=== PATIENT | male | born 1945 | race Caucasian/White ===

== ENCOUNTER 2020-09-26 02:12 | Emergency (ER) | payer MEDICARE, SELFPAY ==
--- NOTE | ~2020-09-26 | XR_ITS ---
XR chest 1V portable 09/26/2020 02:41 Indication: Shortness of breath Procedure: AP portable chest Comparison: No prior studies for comparison. Findings: Heart size normal. No focal infiltrates of the right midlung zone. No pleural effusion, endy ma or pneumothorax. Impression: 1: Focal infiltrates right midlung zone, atelectasis versus developing pneumonia. Reviewed, dictated and finalized at location A. STANT B[employer]ALL [employer]ACH Impression: 1: Focal infiltrates right midlung zone, atelectasis versus developing pneumoni a.
[2020-09-26 02:13] VITALS: BP 130/95; PULSE 170; RESP 22; TEMP 36.5; O2SAT 97
--- NOTE | 2020-09-26 02:19 | ED.CHESTPAIN ---
HPI - Chest Pain General Chief Complaint: Chest Pain Stated Complaint: racing heart Time Seen by Provider: 09/26/20 02:18 History of Present Illness HPI narrative: Awoken from sleep this morning by chest pain and rapid heart rate. The pain is severe pressure. Associated with nausea and mild dyspnea. He took 3 nitroglycerin tablets. Noted to have heart rate as high as 190, thought to be SVT. Initially hypotensive. Given 300 ml NS with return to normal. He reports feeling unwell the past 2 nights. Related Data Allergies Allergy/AdvReac Type Severity Reaction Status Date / Time No Known Allergies Allergy Unverified 04/24/15 13:45 Review of Systems Review of Systems: All systems reviewed & are unremarkable except as noted in HPI and below Constitutional: Constitutional: Reports chills and Denies fever(s) Cardiovascular: Cardiovascular: Reports chest pain and Reports rapid heart rate Respiratory: Respiratory: Reports dyspnea Gastrointestinal: Gastrointestinal: Reports nausea Musculoskeletal: Musculoskeletal: Denies back pain Neurologic: Denies numbness and Denies weakness [facility] Past Medical History Medical History (Updated 09/26/20 @ 03:28 by Faustino Leal MD) CAD (coronary artery disease) Social History Social History (Updated 09/26/20 @ 02:30 by Faustino Leal MD) Smoking status: Never smoker Exam Const: General: alert Nutritional Appearance: well nourished Orientation/consciousness: patient oriented x3 Other: Mild distress HENMT: Head: normal to inspection Neck: Neck: normal visual inspection Resp: Effort & Inspection: normal respiratory effort Auscultation: clear to auscultation bilaterally Cardio: Rate: tachycardic Rhythm: regular rhythm GI: GI Palp: Yes Soft to palpation and No Tenderness to palpation present (GI) Skin: General skin exam: pallor Neuro: General: patient oriented x3, moves all extremities, no focal motor deficits and CN's II-XI intact bilaterally Speech: normal speech Extrem: General: no edema Course Course Emergency Course: Case discussed with the sales contractor on-call for Dr. Forrest. He agrees that since the patient is chest pain free after cardioversion he would not benefit from admission or repeat troponin at this time. He will make a note on the chart so that they will set up EP studies and an event monitor for the patient. Vital Signs Vital signs: Vital Signs Temperature 36.5 C 09/26/20 02:13 Pulse Rate 170 H 09/26/20 02:13 Respiratory Rate 22 H 09/26/20 02:13 Blood Pressure 130/95 H 09/26/20 02:13 Pulse Oximetry 97 09/26/20 02:13 Temperature 36.5 C 09/26/20 02:13 Pulse Rate 91 09/26/20 02:57 Respiratory Rate 20 09/26/20 02:57 Blood Pressure 117/98 H 09/26/20 02:57 Pulse Oximetry 100 09/26/20 02:57 Procedures Other Procedure Procedure 1: Other Procedure: Chemical cardioversion performed. 6 mg adenosine was pushed rapidly with the patient on continuous EKG. He was successfully converted to sinus. MDM - Chest Pain MDM Narrative Medical decision making narrative: Pain free after cardioversion. Noischemic chasnges on EKG. Troponin negative. His cardologist will setup appropriate follow-up . Differential Diagnosis Differential diagnosis: Likely other (ACS, NSTEMI, SVT) Medical Records Data Attestation: I reviewed the patient's medical records. Lab Data Attestation: I reviewed the patient's lab results. Result diagrams: 09/26/20 02:35 09/26/20 02:35 Labs: Lab Results 09/26/20 09/26/20 09/26/20 Range/Units 02:35 02:35 02:35 WBC 9.7 (4.5-10.0) K/mm3 RBC 4.70 (4.6-6.20) M/mm3 Hgb 13.5 L (14.0-18.0) g/dL Hct 41.4 L (42.0-52.0) % MCV 88.1 (80-100) fl MCH 28.7 (26-34) pg MCHC 32.6 (32-36) g/dl RDW 13.6 (11.5-14.5) % Plt Count 267 (150-375) k/mm3 MPV 9.6 (7.4-10.4) fl Immature Gran % (Auto) 0.4 (0-0.5) % Neut %
[2020-09-26 02:24] VITALS: BP 145/109; PULSE 104; RESP 18; O2SAT 100
[2020-09-26] MEDS: ADENOSINE IV SOLN 6 MG/2 ML VIAL IV PUSH (02:24)
[2020-09-26 02:41] LABS: Basophils Absolute Auto 0.1 K/mm3 (0.0-0.1); Basophils Percent Auto 0.6 % (0.2-1.2); Eosinophils Absolute Auto 0.1 K/mm3 (0-0.3); Hematocrit 41.4 % (42.0-52.0); Hemoglobin 13.5 g/dL (14.0-18.0); Immature Granulocyte Absolute 0.04 K/mm3 (0.00-0.031); Immature Granulocyte Percent A 0.4 % (0-0.5); Lymphocytes Absolute Auto 2.91 K/mm3 (0.9-3.2); Lymphocytes Percent Auto 29.9 % (18.3-44.2); Mean Corpuscular HGB Conc 32.6 g/dl (32-36); Mean Corpuscular Hemoglobin 28.7 pg (26-34); Mean Corpuscular Volume 88.1 fl (80-100); Mean Platelet Volume 9.6 fl (7.4-10.4); Monocytes Absolute Auto 0.8 K/mm3 (0.1-0.6); Monocytes Percent Auto 8.2 % (2.6-8.5); Neutrophils Absolute Auto 5.8 K/mm3 (1.3-6.7); Neutrophils Percent Auto 59.9 % (45.5-73.1); Platelet Count Result 267 k/mm3 (150-375); Red Cell Distribution Width 13.6 % (11.5-14.5); White Blood Count 9.7 K/mm3 (4.5-10.0)
[2020-09-26] MEDS: METOPROLOL TARTRATE INJ 5 MG/5 ML VIAL IV PUSH (02:42)
[2020-09-26 02:53] LABS: Anion Gap 17 mmol/L (8-16); Blood Urea Nitrogen 16 mg/dL (9-20); Carbon Dioxide 22 mmol/L (22-30); Chloride 104 mmol/L (98-107); Estimated CRCL calculation 38 ml/min; Estimated Glomerular Filt Rate 50; Glucose 170 mg/dL (75-110); INR 1.1; Potassium 3.9 mmol/L (3.4-5.0); Prothrombin Time 14.3 Seconds (11.1-14.7); Sodium 143 mmol/L (137-145)
[2020-09-26 02:57] VITALS: BP 117/98; PULSE 91; RESP 20; O2SAT 100
[2020-09-26 03:05] LABS: Troponin I 0.014 ng/mL (0.000-0.034)
[2020-09-26 03:57] VITALS: BP 129/82; PULSE 95; RESP 18; O2SAT 99
== END 2020-09-26 04:03 | disposition home or self-care (01) ==
PROVIDERS: Emergency Provider Emergency Medicine; PCP Internal Medicine
DX: I47.1 Supraventricular tachycardia (principal); I25.10 Atherosclerotic heart disease of native coronary artery without angina pectoris; R91.8 Other nonspecific abnormal finding of lung field
CPT/HCPCS: 36415; 71045; 80048; 84484; 85025; 85610; 85730; 96374; 96375; 99284; J0153

== ENCOUNTER 2021-03-28 02:19 | Emergency (ER) | payer MEDICARE, SELFPAY ==
[2021-03-28 02:25] VITALS: BP 147/97; PULSE 65; RESP 16; TEMP 36.6; O2SAT 99
[2021-03-28 02:29] VITALS: BP 147/97; PULSE 65; RESP 20; TEMP 36.6; O2SAT 99
--- NOTE | 2021-03-28 02:40 | ED.SKABFB ---
HPI - Skin/Abscess/Foreign Bdy General Chief complaint: Skin/Abscess/Foreign Body Stated complaint: bitten by insect Time Seen by Provider: 03/28/21 02:28 Source: patient Mode of arrival: ambulatory Limitations: no limitations History of Present Illness HPI narrative: Patient is a 75-year-old male complaining of an itchy rash on his right upper extremity where he was bitten by an insect 2 days ago. Patient states that the itchiness woke him up this morning and that is why he came in. Patient also noticed increased redness in the area. Patient states that he called his doctor yesterday and was prescribed an oral antibiotic. Patient denies any facial, lip, tongue, throat or any other extremity swelling. Patient denies any shortness of breath. Patient denies any fever or chills. Related Data Allergies Allergy/AdvReac Type Severity Reaction Status Date / Time No Known Allergies Allergy Verified 03/28/21 02:20 Review of Systems Review of Systems: All systems reviewed & are unremarkable except as noted in HPI and below PMFSH Past Medical History Medical History CAD (coronary artery disease) Social History Social History Smoking status: Never smoker Comments Past medical history: Hypertension coronary disease Social history: Non-smoker no EtOH or drug use Family history: Noncontributory Exam Const: General: no acute distress and alert Orientation/consciousness: patient oriented x3 HENMT: Head: normal to inspection Other: Negative for any tongue, lip, throat swelling. Negative for any neck swelling. Eyes: Pupils: Equal, round and reactive pupils present Neck: Neck: normal visual inspection Skin: Other: Mild erythema, mild swelling right arm measuring approximately 1 x 2 cm, negative for streaking, neurovascular is intact Course Vital Signs Vital signs: Vital Signs Temperature 36.6 C 03/28/21 02:25 Pulse Rate 65 03/28/21 02:25 Respiratory Rate 16 03/28/21 02:25 Blood Pressure 147/97 H 03/28/21 02:25 Pulse Oximetry 99 03/28/21 02:25 Temperature 36.6 C 03/28/21 02:29 Pulse Rate 65 03/28/21 02:29 Respiratory Rate 20 03/28/21 02:29 Blood Pressure 147/97 H 03/28/21 02:29 Pulse Oximetry 99 03/28/21 02:29 MDM - Skin/Abscess/Foreign Bdy Differential Diagnosis Differential diagnosis: Likely abscess of skin or subcutaneous tissue, allergic reaction to drug, insect bites and other Discharge Plan Discharge Clinical Impression: Insect bites Qualifiers: Encounter type: initial encounter Site of insect bite: upper arm Laterality: right Qualified Code(s): S40.861A - Insect bite (nonvenomous) of right upper arm, initial encounter Patient Disposition: Home, Self-Care Condition: Stable Instructions: Insect Bite or Sting (ED) Additional Instructions: Follow-up with your primary care physician tomorrow Prescriptions: New prednisone 20 mg tablet 20 mg PO DAILY Qty: 3 RF: 0 famotidine [Pepcid] 20 mg tablet 20 mg PO BID Qty: 10 RF: 0 Follow-up/Referrals: PHYSICIAN NOT ON STAFF,NONSTAFF [Primary Care Provider] - 03/28/21 Time of Disposition: 02:45
[2021-03-28] MEDS: FAMOTIDINE 20 MG TABLET 40 MG PO (02:58)
[2021-03-28] MEDS: predniSONE 20 MG TABLET 60 MG PO (02:59)
[2021-03-28 03:11] VITALS: BP 142/89; PULSE 67; RESP 20; O2SAT 98
== END 2021-03-28 03:13 | disposition home or self-care (01) ==
PROVIDERS: Emergency Provider Emergency Medicine; PCP Internal Medicine
DX: S40.861A Insect bite (nonvenomous) of right upper arm, initial encounter (principal); I25.10 Atherosclerotic heart disease of native coronary artery without angina pectoris; I10 Essential (primary) hypertension; W57.XXXA Bitten or stung by nonvenomous insect and other nonvenomous arthropods, initial encounter
CPT/HCPCS: 99283; A9270; J7512

== ENCOUNTER 2023-02-05 10:20 | Emergency (ER) | payer MEDICARE, SELFPAY ==
[2023-02-05] VITALS (11 sets, daily range): BP systolic 126–144; BP diastolic 80–84; PULSE 56–76; RESP 13–19; TEMP 36.5; O2SAT 97–100
--- NOTE | ~2023-02-05 | XR_ITS ---
EXAMINATION: XR chest 2V DATE: 02/05/2023 10:42 INDICATION: Left-sided chest pain TECHNIQUE: PA and lateral views of the chest are obtained. COMPARISON: 09/26/2020 FINDINGS: The lungs are free of acute opacities. No pleural effusion or pneumothorax. The cardiomedia stinal silhouette is normal. There is moderate thoracic spondylosis. IMPRESSION: 1. No acute cardiopulmonary abnormality. Reviewed, dictated and finalized at location L.
--- NOTE | 2023-02-05 10:23 | ECG_ITS ---
Measurements Intervals [place] Rate: 58 P: 54 LA: 160 QRS: 53 QRSD: 97 T: 61 QT: 388 QTc: 382 Interpretive Statements SINUS BRADYCARDIA NONSPECIFIC ST AND T-WAVE ABNORMALITY NO PREVIOUS ECG AVAILABLE FOR COMPARISON Electronically Signed On 02-05-2023 10:49:29 CDT by Sean Zamora M.D.
[2023-02-05 10:38] LABS: Basophils Percent Auto 0.4 % (0.2-1.2); Eosinophils Absolute Auto 0.1 K/mm3 (0-0.3); Eosinophils Percent Auto 0.9 % (0-4.4); Hematocrit 38.9 % (42.0-52.0); Hemoglobin 12.5 g/dL (14.0-18.0); Immature Granulocyte Absolute 0.04 K/mm3 (0.00-0.031); Immature Granulocyte Percent A 0.5 % (0-0.5); Lymphocytes Absolute Auto 1.32 K/mm3 (0.9-3.2); Lymphocytes Percent Auto 16.9 % (18.3-44.2); Mean Corpuscular HGB Conc 32.1 g/dl (32-36); Mean Corpuscular Hemoglobin 27.9 pg (26-34); Mean Corpuscular Volume 86.8 fl (80-100); Monocytes Absolute Auto 0.6 K/mm3 (0.1-0.6); Monocytes Percent Auto 7.8 % (2.6-8.5); Neutrophils Absolute Auto 5.7 K/mm3 (1.3-6.7); Neutrophils Percent Auto 73.5 % (45.5-73.1); Platelet Count Result 247 k/mm3 (150-375); Red Blood Count 4.48 M/mm3 (4.6-6.20); Red Cell Distribution Width 15.6 % (11.5-14.5); White Blood Count 7.8 K/mm3 (4.5-10.0)
[2023-02-05 10:51] LABS: Alanine Aminotransferase 31 U/L (6-50); Albumin Level 4.5 g/dL (3.5-5.1); Alkaline Phosphatase 53 U/L (38-126); Anion Gap 7 mmol/L (8-16); Aspartate Amino Transferase 33 U/L (17-59); Bilirubin,Total 0.6 mg/dL (0.2-1.3); Blood Urea Nitrogen 18 mg/dL (9-20); Calcium 9.3 mg/dL (8.4-10.2); Carbon Dioxide 30 mmol/L (22-30); Chloride 100 mmol/L (98-107); Estimated CRCL calculation 63 ml/min; Estimated Glomerular Filt Rate > 60; Glucose 175 mg/dL (65-110); Lipase 148 U/L (23-300); Potassium 4.5 mmol/L (3.4-5.0); Sodium 137 mmol/L (137-145)
[2023-02-05 10:57] LABS: INR 1.2; Partial Thromboplastin Time 27.5 SECONDS (22.3-36.8); Prothrombin Time 14.5 Seconds (11.1-14.7)
[2023-02-05 11:02] LABS: Troponin I < 0.012 ng/mL (0.000-0.034)
[2023-02-05 14:14] LABS: Troponin I < 0.012 ng/mL (0.000-0.034)
--- NOTE | 2023-02-05 15:40 | ED.GENADULT ---
HPI - General Adult General Chief complaint: Chest Pain Stated complaint: chest pain Time Seen by Provider: 02/05/23 14:29 History of Present Illness HPI narrative: 77-year-old male presented to the emergency department for evaluation of reproducible left chest and back pain that has been going on for the last 2 days. Patient denies any recent falls or injuries. Patient states that over the last 2 days he has had a very reproducible left-sided chest pain that is worsened with movement and twisting. Patient states he did have some pain when he took a deep breath. Patient denies any pain at rest. Patient does have a history of coronary disease and had a cardiac cath approximately 5 years ago during which he had a blood vessel that was occluded but the blood vessel was too small for angioplasty. Patient was treated medically and has follows up with cardiology at [facility]. Patient also has a prior history of SVT. Patient denies any associated shortness of breath or diaphoresis. Patient denies any pain with exertion. Patient denies any pain at rest but does have pain with twisting. Related Data Allergies Allergy/AdvReac Type Severity Reaction Status Date / Time No Known Allergies Allergy Verified 03/28/21 02:20 Review of Systems Review of Systems: All systems reviewed & are unremarkable except as noted in HPI and below PMFSH Past Medical History Medical History CAD (coronary artery disease) Social History Social History Smoking status: Never smoker Exam Narrative: APPEARANCE: Well appearing, no pain, no distress, well-nourished. HEAD: normocephalic, atraumatic. EYES: PERRLA/EOMI, conjunctivae clear. NOSE: Normal no drainage NECK: Supple. No adenopathy, no masses. RESPIRATORY: Airway patent, respirations nonlabored. Clear to auscultation bilaterally, no rales, rhonchi, wheezing. CARDIOVASCULAR: Regular rate and rhythm without murmurs rubs or gallops. ABDOMINAL: Soft, nontender, nondistended, normal bowel sounds MUSCULOSKELETAL: Moves all extremities. Strength/ROM intact, No edema, No calf tenderness. NEURO: Alert. Cranial nerves II through XII intact. Grossly intact SKIN: Warm, dry. Normal Color Course Course Emergency Course: 77-year-old male with reproducible left-sided chest wall pain. Patient's EKG shows normal sinus rhythm with nonspecific ST changes. Patient is afebrile with no leukocytosis. Patient has a normal CMP and normal serial troponins. Patient's chest x-ray shows no acute cardiopulmonary normality. Patient's heart score is elevated. Patient and were offered admission for further cardiac rule out including the possibility of a stress test. They were informed the risk of not being able to rule out the fact that this may be due to coronary disease. I explained the risk of this being coronary disease due to the patient's age and prior history of coronary disease. Patient and are aware of the risks still prefer discharge to home and follow-up with their land examiner as outpatient. Patient and were updated on reasons to return to the emergency department for Vital Signs Vital signs: Vital Signs Temperature 97.7 F 02/05/23 10:23 Pulse Rate 61 02/05/23 10:23 Respiratory Rate 17 02/05/23 10:23 Blood Pressure 126/80 02/05/23 10:23 Pulse Oximetry 100 02/05/23 10:23 Oxygen Delivery Room Air 02/05/23 10:23 Temperature 97.7 F 02/05/23 10:23 Pulse Rate 76 02/05/23 16:04 Respiratory Rate 14 02/05/23 15:46 Blood Pressure 135/80 02/05/23 15:31 Pulse Oximetry 97 02/05/23 15:46 Oxygen Delivery Room Air 02/05/23 10:23 Medical Decision Making Vital Signs Vital Signs: Vital Signs Temperature 97.7 F 02/05/23 10:23 Pulse Rate 61 02/05/23 10:23 Respiratory Rate 17 02/05/23 10:23 Blood Pressure 126/80 02/05/23 10:23 Pulse Oximet
== END 2023-02-05 16:05 | disposition home or self-care (01) ==
PROVIDERS: Emergency Provider Emergency Medicine
DX: R07.9 Chest pain, unspecified (principal); I25.10 Atherosclerotic heart disease of native coronary artery without angina pectoris
CPT/HCPCS: 36415; 71046; 80053; 83690; 84484; 85025; 85610; 85730; 93005; 99284

== ENCOUNTER 2023-12-11 09:50 | Emergency (ER) | payer MEDICARE, SELFPAY ==
--- NOTE | ~2023-12-11 | XR_ITS ---
EXAMINATION: XR ribs BI 3V w CXR 2V INDICATION: Rib pain after fall TECHNIQUE: PA and lateral views of the chest and 3 views of the bilateral ribs were obtained. COMPARISON: 02/05/2023 FINDINGS: The lungs are free of acute opacities. No pleural effusion or pneumothorax. The cardiomedia stinal silhouette is normal. There is moderate thoracic spondylosis. No displaced rib fracture is madan ntified. IMPRESSION: 1. No acute cardiopulmonary abnormality or evidence of displaced rib fracture. Reviewed, dictated and finalized at location B. [employer]ER
[2023-12-11 10:11] VITALS: BP 148/77; PULSE 58; RESP 16; TEMP 36.3; O2SAT 98
[2023-12-11 10:13] VITALS: BP 148/77; PULSE 58; RESP 16; TEMP 36.3; O2SAT 98
--- NOTE | 2023-12-11 10:18 | ED.FALL ---
HPI - Fall General Chief Complaint: Fall Stated Complaint: Chest Pain Time Seen by Provider: 12/11/23 09:53 Source: patient Mode of arrival: ambulatory Limitations: no limitations History of Present Illness HPI Narrative: Patient is a 78-year-old male who presents with chest wall and back pain after fall in driveway 2 days ago. Patient states he fell forward and caught himself on his forearms. States pain is worse with twisting movements. Denies any difficulty breathing or shortness of breath. Denies hitting his head. Patient has been using back brace and reports moderate relief. Patient has also been taking 800 mg of ibuprofen twice a day. Patient concern for possible rib fracture. Patient has history of back pain. Patient is on blood thinners. Patient denies any numbness, tingling or weakness to extremities. Denies any loss of bowel or bladder. MD complaint: fall Related Data Home Medications Medication Instructions Recorded Confirmed amoxicillin 875 mg tablet 875 mg DIRECTED 12/11/23 12/11/23 aripiprazole 2 mg tablet 2 mg DIRECTED 12/11/23 12/11/23 atorvastatin 40 mg tablet 40 mg DIRECTED 12/11/23 12/11/23 bupropion HCl 300 mg 24 hr tablet, 300 mg PO DIRECTED 12/11/23 12/11/23 extended release clopidogrel 75 mg tablet 75 mg DIRECTED 12/11/23 12/11/23 donepezil 5 mg tablet 5 mg DIRECTED 12/11/23 12/11/23 ferrous sulfate 325 mg (65 mg 325 mg DIRECTED 12/11/23 12/11/23 iron) tablet (FeroSul) folic acid 1 mg tablet 1 mg DIRECTED 12/11/23 12/11/23 hydrocodone 5 mg-acetaminophen 325 1 tablet DIRECTED 12/11/23 12/11/23 mg tablet ibuprofen 800 mg tablet 800 mg DIRECTED 12/11/23 12/11/23 insulin detemir U-100 100 unit/mL 1 unit subcut DIRECTED 12/11/23 12/11/23 (3 mL) subcutaneous pen (Levemir FlexPen) lisinopril 20 mg tablet mg 12/11/23 metformin 1,000 mg tablet 1,000 mg DIRECTED 12/11/23 12/11/23 metoprolol tartrate 50 mg tablet 50 mg DIRECTED 12/11/23 12/11/23 pantoprazole 40 mg tablet,delayed 40 mg PO DIRECTED 12/11/23 12/11/23 release pen needle, diabetic 32 gauge x 12/11/23 12/11/23 (BD Ann 2nd Gen Pen Needle) sertraline 100 mg tablet 100 mg DIRECTED 12/11/23 12/11/23 sitagliptin phosphate 100 mg 100 mg DIRECTED 12/11/23 12/11/23 tablet (Januvia) sodium,potassium,mag sulfates 17.5 1 ml DIRECTED 12/11/23 12/11/23 gram-3.13 gram-1.6 gram oral soln Allergies Allergy/AdvReac Type Severity Reaction Status Date / Time No Known Allergies Allergy Verified 03/28/21 02:20 Review of Systems Review of Systems: All systems reviewed & are unremarkable except as noted in HPI and below Constitutional: Constitutional: Denies body ache(s), Denies chills, Denies fatigue, Denies fever(s), Denies headache(s), Denies malaise and Denies weakness Eyes: Eyes: Denies blurry vision, Denies irritation and Denies loss of vision ENT: Denies otalgia, Denies headache(s), Denies nasal discharge, Denies sinus pain and Denies sore throat Cardiovascular: Cardiovascular: Denies chest pain, Denies irregular heart rhythm, Denies dyspnea and Reports other (Chest wall pain) Respiratory: Respiratory: Denies dyspnea Gastrointestinal: Gastrointestinal: Denies abdominal pain, Denies melena, Denies hematochezia, Denies diarrhea, Denies nausea and Denies vomiting Musculoskeletal: Musculoskeletal: Reports back pain, Denies myalgias and Denies arthralgias Integumentary/Breasts: Skin/Breast: Denies pruritus and Denies rash Neurologic: Denies headache(s), Denies loss of vision and Denies weakness Psychiatric: Psychiatric: Reports no additional psychiatric complaints Endocrine: Endocrine: Denies fatigue PMFSH Past Medical History Medical History CAD (coronary artery disease) Social History Social History Smoking status: Never smoker Comments At time
== END 2023-12-11 11:05 | disposition home or self-care (01) ==
PROVIDERS: Emergency Provider Nurse Practitioner Family
DX: S29.012A Strain of muscle and tendon of back wall of thorax, initial encounter (principal); S29.011A Strain of muscle and tendon of front wall of thorax, initial encounter; W19.XXXA Unspecified fall, initial encounter; I25.10 Atherosclerotic heart disease of native coronary artery without angina pectoris
CPT/HCPCS: 71046; 71110; 99213; G0463

== ENCOUNTER 2024-07-05 16:29 | Emergency (ER) | payer MEDICARE, SELFPAY ==
--- NOTE | ~2024-07-05 | XR_ITS ---
EXAMINATION: XR elbow LT min 3V DATE: 07/05/2024 17:29 INDICATION: Left elbow pain. Fall. TECHNIQUE: 4 views of left elbow were obtained. COMPARISON: Left elbow radiographs 06/28/2008 FINDINGS: Alignment is normal. No fracture. Joint spaces are normal. No elbow joint effusion. There i s heterotopic ossification distal to medial and lateral humeral epicondyles. IMPRESSION: 1. No fracture. Reviewed, dictated and finalized at location A. IMPRESSION: 1. No fracture.
[2024-07-05 16:38] VITALS: BP 154/91; PULSE 61; RESP 16; TEMP 36.1; O2SAT 97
--- NOTE | 2024-07-05 16:48 | ED.GENADULT ---
HPI - General Adult General Chief complaint: Wound/Laceration Stated complaint: RT Arm Cut Time Seen by Provider: 07/05/24 16:48 Source: patient, RN notes reviewed and old records reviewed Mode of arrival: ambulatory Limitations: no limitations History of Present Illness HPI narrative: 78-year-old male to [facility] complaint laceration to right dorsal forearm and right elbow pain for 9 days. Patient states that 9 days ago he had a large dog jumped up onto him/his right arm, causing him to fall on his left elbow. Patient states that he has been keeping wound to right arm clean, dry and dressed. Patient states he wants a wound check because it is still weeping. Patient denies surrounding redness, swelling, warmth, tenderness. Patient concerned for fracture to left elbow. Patient denies decreased range of motion, weakness, tingling, numbness to left upper extremity. Patient resting comfortably in exam room with no signs of distress. Related Data Home Medications Medication Instructions Recorded Confirmed aripiprazole 2 mg tablet 2 mg DIRECTED 12/11/23 07/05/24 atorvastatin 40 mg tablet 40 mg DIRECTED 12/11/23 07/05/24 bupropion HCl 300 mg 24 hr tablet, 300 mg PO DIRECTED 12/11/23 07/05/24 extended release clopidogrel 75 mg tablet 75 mg DIRECTED 12/11/23 07/05/24 donepezil 5 mg tablet 5 mg DIRECTED 12/11/23 07/05/24 ferrous sulfate 325 mg (65 mg 325 mg DIRECTED 12/11/23 07/05/24 iron) tablet (FeroSul) folic acid 1 mg tablet 1 mg DIRECTED 12/11/23 12/11/23 hydrocodone 5 mg-acetaminophen 325 1 tablet DIRECTED 12/11/23 12/11/23 mg tablet ibuprofen 800 mg tablet 800 mg DIRECTED 12/11/23 12/11/23 insulin detemir U-100 100 unit/mL 1 unit subcut DIRECTED 12/11/23 07/05/24 (3 mL) subcutaneous pen (Levemir FlexPen) lisinopril 20 mg tablet mg 12/11/23 metformin 1,000 mg tablet 1,000 mg DIRECTED 12/11/23 07/05/24 metoprolol tartrate 50 mg tablet 50 mg DIRECTED 12/11/23 07/05/24 pantoprazole 40 mg tablet,delayed 40 mg PO DIRECTED 12/11/23 07/05/24 release pen needle, diabetic 32 gauge x 12/11/23 12/11/2332 (BD Ann 2nd Gen Pen Needle) sertraline 100 mg tablet 100 mg DIRECTED 12/11/23 07/05/24 sitagliptin phosphate 100 mg 100 mg DIRECTED 12/11/23 07/05/24 tablet (Januvia) sodium,potassium,mag sulfates 17.5 1 ml DIRECTED 12/11/23 07/05/24 gram-3.13 gram-1.6 gram oral soln Allergies Allergy/AdvReac Type Severity Reaction Status Date / Time No Known Allergies Allergy Verified 03/28/21 02:20 Review of Systems Review of Systems: All systems reviewed & are unremarkable except as noted in HPI and below Constitutional: Constitutional: Reports no additional constitutional complaints Eyes: Eyes: Reports no additional eye complaints ENT: Reports system reviewed and no additional complaints, except as documented Cardiovascular: Cardiovascular: Reports no additional cardiovascular complaints, Denies chest pain and Denies dyspnea Respiratory: Respiratory: Reports no additional respiratory complaints, Denies cough and Denies dyspnea Musculoskeletal: Musculoskeletal: Reports as per HPI, Reports arthralgias ( Left elbow), Denies limited range of motion, Denies muscle weakness, Denies numbness and Denies tingling Integumentary/Breasts: Skin/Breast: Reports as per HPI and Reports wounds ( right mid dorsal forearm) Neurologic: Reports system reviewed and no additional complaints, except as documented Psychiatric: Psychiatric: Reports no additional psychiatric complaints [facility] Past Medical History Medical History CAD (coronary artery disease) Social History Social History Smoking status: Never smoker Comments At the time of my signature, I reviewed and agree with the nursing past medical, surgical, social, and family history. There is
== END 2024-07-05 17:53 | disposition home or self-care (01) ==
PROVIDERS: Emergency Provider Nurse Practitioner Family
DX: S51.811A Laceration without foreign body of right forearm, initial encounter (principal); S50.01XA Contusion of right elbow, initial encounter; W54.1XXA Struck by dog, initial encounter; I25.10 Atherosclerotic heart disease of native coronary artery without angina pectoris
CPT/HCPCS: 73080; 99213; G0463

== ENCOUNTER 2024-11-20 19:43 | Emergency (ER) | payer MEDICARE, SELFPAY ==
[2024-11-20 19:53] VITALS: BP 177/86; PULSE 62; RESP 16; TEMP 36.2; O2SAT 100
[2024-11-20 20:01] LABS: EDSTREPNEGPOS1 Negative (Negative)
--- NOTE | 2024-11-20 20:12 | PC.NURSE ---
PT REPORTS IS HAVING DIFFICULTY SPEAKING, IT IS LIKE THE INSIDE OF MY MOUTH HAS SHRUNKEN. PELON WOMACK QM NURSE AWARE.
--- NOTE | 2024-11-20 20:16 | ED_ITS ---
HPI - URI/Sore Throat General Chief Complaint: Upper Respiratory Infection Stated Complaint: Sore Throat Time Seen by Provider: 11/20/24 19:52 Source: patient, family () and RN notes reviewed Mode of arrival: ambulatory Limitations: no limitations History of Present Illness HPI Narrative: Patient presents today complaining of sore throat that started this morning. States pain increases with swallowing. He is also complaining swelling to the throat. Denies any additional symptoms to include fever, congestion, cough. Related Data Home Medications ?Medication ?Instructions ?Recorded ?Confirmed ?Last Taken ?Type aripiprazole 2 mg tablet 2 mg DIRECTED 12/11/23 07/05/24 Unknown History atorvastatin 40 mg tablet 40 mg DIRECTED 12/11/23 07/05/24 Unknown History bupropion HCl 300 mg 24 hr tablet, 300 mg PO DIRECTED 12/11/23 07/05/24 Unknown History extended release clopidogrel 75 mg tablet 75 mg DIRECTED 12/11/23 07/05/24 Unknown History folic acid 1 mg tablet 1 mg DIRECTED 12/11/23 12/11/23 Unknown History insulin detemir U-100 100 unit/mL 1 unit subcut DIRECTED 12/11/23 07/05/24 Unknown History (3 mL) subcutaneous pen (Levemir FlexPen) lisinopril 20 mg tablet mg 12/11/23 Unknown History metformin 1,000 mg tablet 1,000 mg DIRECTED 12/11/23 07/05/24 Unknown History metoprolol tartrate 50 mg tablet 50 mg DIRECTED 12/11/23 07/05/24 Unknown History pen needle, diabetic 32 gauge x 12/11/23 12/11/23 Unknown History 5/32 (BD Ann 2nd Gen Pen Needle) sertraline 100 mg tablet 100 mg DIRECTED 12/11/23 07/05/24 Unknown History sitagliptin phosphate 100 mg 100 mg DIRECTED 12/11/23 07/05/24 Unknown History tablet (Januvia) sodium,potassium,mag sulfates 17.5 1 ml DIRECTED 12/11/23 07/05/24 Unknown History gram-3.13 gram-1.6 gram oral soln Allergies Allergy/AdvReac Type Severity Reaction Status Date / Time No Known Allergies Allergy Verified 11/20/24 19:53 Review of Systems Review of Systems: CONSTITUTIONAL: Denies body aches, fever, chills, or sweats. EYES: Denies visual changes, redness, or discharge. ENT: Denies rhinorrhea, congestion, or otalgia.+ sore throat CARDIOVASCULAR: Denies chest pain, palpitations, or edema. RESPIRATORY: Denies cough or dyspnea. GASTROINTESTINAL: Denies abdominal pain, nausea, vomiting, or diarrhea. GENITOURINARY: Denies dysuria or hematuria. SKIN: Denies rash, itching, or wounds. MUSCULOSKELETAL: Denies back pain, joint pain, or myalgia. NEUROLOGIC: Denies headache, numbness, tingling, or weakness. PSYCH: Denies depression or anxiety. [facility] Past Medical History Medical History CAD (coronary artery disease) Social History Social History Smoking status: Never smoker Comments At time of signature, I have reviewed and agree with nursing past medical, surgical, social and family history unless otherwise noted. Please see nursing chart for further information. There is no relevant family history pertinent to the presenting complaint Exam Narrative: GENERAL: Well-appearing, well-nourished, and in no acute distress. HEAD: Normocephalic, atraumatic. EYES: EOMI. No redness or drainage. Conjunctivae normal. ENT: Mucous membranes pink and moist. Nares clear. No rhinorrhea. Throat normal. Uvula midline. Left tongue is swollen causing asymmetry. Lips and face without edema NECK: Normal AROM. Supple. No lymphadenopathy. CHEST: No respiratory distress. Clear to auscultation. HEART: Regular rate and rhythm. No murmur appreciated. EXTREMITIES: Normal range of motion. No edema. SKIN: Warm, dry, no rash. Capillary refill normal. Normal skin turgor. NEURO: No focal deficits. Alert and oriented x3. Gait steady. PSYCH: Normal affect. No signs of depression or anxiety. Course Course Emergency Course: 1999- Consulted with collaborating physician, Dr. Brooke. Recommend ER transfer for possible angioedema as patient is on lisinopril. Patient agrees with plan. Level of Care: Express Care Visit Vital Signs Vital signs: Vital Signs Temperature 97.1 F L 11/20/24 19:53 Pulse Rate 62 11/20/24 19:53 Respiratory Rate 16 11/20/24 19:53 Blood Pressure 177/86 H 11/20/24 19:53 Pulse Oximetry 100 11/20/24 19:53 Temperature 97.1 F L 11/20/24 19:53 Pulse Rate 62 11/20/24 19:53 Respiratory Rate 16 11/20/24 19:53 Blood Pressure 177/86 H 11/20/24 19:53 Pulse Oximetry 100 11/20/24 19:53 Reviewed Transfer Transfered to: [facility] Transportation: Other (Private vehicle) Transfer rationale: tongue swelling Accepting physician: Izaiah MDM - URI/Sore Throat MDM Narrative Medical decision making narrative: Rapid strep negative. Patient will be transferred to the ER for further evaluation of his tongue swelling. Differential Diagnosis Differential diagnosis: Likely upper respiratory infection, pharyngitis and other (Strep throat, angioedema) Lab Data Attestation: I reviewed the patient's lab results. Labs: Lab Results 11/20/24 Range/Units 19:59 POC Grp A Strep Screen Negative (Negative) Critical Care Time Critical Care Time Critical Care Time: No Discharge Plan Discharge Clinical Impression: Tongue swelling, Sore throat Patient Disposition: Acute Care Hospital Condition: Stable Patient Language: Singaporean Prescriptions: No Action atorvastatin 40 mg tablet 40 mg DIRECTED lisinopril 20 mg tablet sertraline 100 mg tablet 100 mg DIRECTED clopidogrel 75 mg tablet 75 mg DIRECTED metformin 1,000 mg tablet 1,000 mg DIRECTED metoprolol tartrate 50 mg tablet 50 mg DIRECTED folic acid 1 mg tablet 1 mg DIRECTED bupropion HCl 300 mg tablet extended release 24 hr 300 mg PO DIRECTED aripiprazole 2 mg tablet 2 mg DIRECTED Levemir FlexPen 100 unit/mL (3 mL) insulin pen 1 unit SUBCUT DIRECTED Januvia 100 mg tablet 100 mg DIRECTED (DME) pen needle, diabetic [BD Ann 2nd Gen Pen Needle] 32 gauge x 5/32 needle MISCELLANEOUS sodium,potassium,mag sulfates 17.5-3.13-1.6 gram recon soln 1 ml DIRECTED Follow-up/Referrals: PHYSICIAN,INDUSTRIAL PSYCHOLOGIST [Primary Care Provider] - Time of Disposition: 20:17
== END 2024-11-20 20:16 | disposition short-term general hospital (02) ==
PROVIDERS: Emergency Provider Nurse Practitioner
DX: J02.9 Acute pharyngitis, unspecified (principal); K14.8 Other diseases of tongue; I25.10 Atherosclerotic heart disease of native coronary artery without angina pectoris
CPT/HCPCS: 87880; 99213; G0463

== ENCOUNTER 2024-11-20 20:36 | Emergency (ER) | payer MEDICARE, SELFPAY ==
[2024-11-20 20:38] VITALS: BP 160/77; PULSE 62; RESP 18; TEMP 36.7; O2SAT 98
[2024-11-20 20:44] VITALS: BP 159/82; PULSE 56; PULSE 66; RESP 14; O2SAT 99
[2024-11-20 21:13] VITALS: BP 137/80; PULSE 66; RESP 16; O2SAT 98
[2024-11-20] MEDS: FAMOTIDINE 20 MG/2 ML VIAL IV PUSH (21:14)
[2024-11-20] MEDS: diphenhydrAMINE HCl INJ 50 MG/ML VIAL 25 MG IV PUSH (21:14)
[2024-11-20] MEDS: methylPREDNISolone SOD SUCC 125 MG VIAL IV PUSH (21:14)
[2024-11-20] MEDS: TRANEXAMIC ACID 1,000MG/ISO100 1,000 MG/100 ML BAG 600 MG IVPB (21:49)
--- NOTE | 2024-11-20 22:03 | ED_ITS ---
HPI - General Adult General Chief complaint: Unspecified Stated complaint: throat Time Seen by Provider: 11/20/24 20:42 History of Present Illness HPI narrative: Patient is a 79-year-old male who presents to the emergency department this evening from local urgent care due to concern for angioedema. Patient presented to the urgent care this evening complaining of a sore throat and tongue swelling. Admits that he is on lisinopril. Urgent care obtained a strep swab which was negative for strep A. Patient states the symptoms began this morning and he noticed that they slightly worsened throughout the day which is what prompted him to go to the urgent care. Patient states that since presenting to the urgent care his symptoms have remained stable and have not worsened. Patient also admits that he has had a similar episode of this tongue swelling 4- 5 years ago in [place] and admits that he was admitted at that time but states that they did not tell him to stop taking the lisinopril. He is currently denying any difficulty breathing, shortness of breath, denies any chest pain, nausea vomiting or abdominal pain. No additional symptoms or concerns at this time. Related Data Home Medications ?Medication ?Instructions ?Recorded ?Confirmed ?Last Taken ?Type aripiprazole 2 mg tablet 2 mg DIRECTED 12/11/23 07/05/24 Unknown History atorvastatin 40 mg tablet 40 mg DIRECTED 12/11/23 07/05/24 Unknown History bupropion HCl 300 mg 24 hr tablet, 300 mg PO DIRECTED 12/11/23 07/05/24 Unknown History extended release clopidogrel 75 mg tablet 75 mg DIRECTED 12/11/23 07/05/24 Unknown History folic acid 1 mg tablet 1 mg DIRECTED 12/11/23 12/11/23 Unknown History insulin detemir U-100 100 unit/mL 1 unit subcut DIRECTED 12/11/23 07/05/24 Unknown History (3 mL) subcutaneous pen (Levemir FlexPen) lisinopril 20 mg tablet mg 12/11/23 Unknown History metformin 1,000 mg tablet 1,000 mg DIRECTED 12/11/23 07/05/24 Unknown History metoprolol tartrate 50 mg tablet 50 mg DIRECTED 12/11/23 07/05/24 Unknown History pen needle, diabetic 32 gauge x 12/11/23 12/11/23 Unknown History (BD Ann 2nd Gen Pen Needle) sertraline 100 mg tablet 100 mg DIRECTED 12/11/23 07/05/24 Unknown History sitagliptin phosphate 100 mg 100 mg DIRECTED 12/11/23 07/05/24 Unknown History tablet (Januvia) sodium,potassium,mag sulfates 17.5 1 ml DIRECTED 12/11/23 07/05/24 Unknown History gram-3.13 gram-1.6 gram oral soln Allergies Allergy/AdvReac Type Severity Reaction Status Date / Time No Known Allergies Allergy Verified 11/20/24 20:46 Review of Systems Review of Systems: All systems are reviewed and are negative unless stated otherwise in the HPI. [facility] Past Medical History Medical History CAD (coronary artery disease) Social History Social History Smoking status: Never smoker Exam Narrative: General: Alert, awake, afebrile, in no acute distress. HEENT: PERRL, no rhinorrhea, no post nasal drip, oropharynx clear, tongue swelling noted to the left portion of the tongue, able to visualize the patient's posterior oropharynx, no lip swelling appreciated. Neck: Trachea midline, no JVD, no lymphadenopathy. Cardiovascular: Regular rate and rhythm, no murmurs, rubs or gallops, no peripheral edema. Respiratory: Clear to auscultation bilaterally, no tachypnea, no wheezing, no rhonchi, no rubs, no respiratory distress. Abdomen: Soft, nontender, nondistended, no rebound, no guarding, no peritoneal signs. Musculoskeletal: No joint swelling or deformity, normal muscle tone. Skin: No rashes or petechia, no signs of infection. Psychiatric: Alert and oriented, normal behavior and judgment for situation. Neurological: Alert and oriented to person, place, and time. Follows all commands. No focal deficits, speech is clear and fluent. Course Vital Signs Vital signs: Vital Signs Temperature 98.0 F 11/20/24 20:38 Pulse Rate 62 11/20/24 20:38 Respiratory Rate 18 11/20/24 20:38 Blood Pressure 160/77 H 11/20/24 20:38 Pulse Oximetry 98 11/20/24 20:38 Oxygen Delivery Room Air 11/20/24 20:38 Temperature 98.0 F 11/20/24 20:38 Pulse Rate 56 L 11/20/24 22:56 Respiratory Rate 13 11/20/24 22:56 Blood Pressure 170/82 H 11/20/24 22:56 Pulse Oximetry 98 11/20/24 22:56 Oxygen Delivery Room Air 11/20/24 20:38 Medical Decision Making MDM Narrative Medical decision making narrative: The patient was evaluated by myself in the emergency department. History is obtained from patient who is an independent historian and physical exam was performed. External medical records were reviewed at this time. IV was establ ished and pertinent tests were ordered. Patient was administered 25 mg of IV Benadryl, 20 mg of IV Pepcid and 125 mg of IV Solu-Medrol. Patient was also administered 1 g of IV TXA. Differential diagnosis considerations include angioedema secondary to lisinopril use, allergic reaction, anaphylaxis. Comorbidities impacting this visit include lisinopril use. I have evaluated and discussed social determinants of health with the patient that could potentially impact subsequent diagnosis and treatment plans. On repeat assessment and serial examinations of the patient, reevaluation revea led that the patient is doing well and is in no acute distress, patient states that he feels as though his tongue swelling has improved. Currently denying any difficulty breathing or swallowing. Patient is able to tolerate p.o. intake without any difficulty. Between urgent care visit and ED visit, patient has been observed for approximately 5-6 hours with improvement of his symptoms. Patient was instructed that he can no longer take lisinopril and needs to follow up with his primary care physician to be placed on a different blood pressure medication and patient is agreeable with this plan. Repeat vital signs were all reviewed and noted to be stable. Differential diagnosis and treatment plan were discussed with the patient at bedside. Patient agrees with discussion and after shared medical decision making agrees with discharge. All questions were answered to the patient's satisfaction. Patient will follow up with his PCP in 3-5 days. Patient was provided with strict return precautions and instructed to return to the emergency department if any new or worsening symptoms develop. The patient was discharged in stable condition. Vital Signs Vital Signs: Vital Signs Temperature 98.0 F 11/20/24 20:38 Pulse Rate 62 11/20/24 20:38 Respiratory Rate 18 11/20/24 20:38 Blood Pressure 160/77 H 11/20/24 20:38 Pulse Oximetry 98 11/20/24 20:38 Oxygen Delivery Room Air 11/20/24 20:38 Temperature 98.0 F 11/20/24 20:38 Pulse Rate 56 L 11/20/24 22:56 Respiratory Rate 13 11/20/24 22:56 Blood Pressure 170/82 H 11/20/24 22:56 Pulse Oximetry 98 11/20/24 22:56 Oxygen Delivery Room Air 11/20/24 20:38 Discharge Plan Discharge Clinical Impression: Tongue swelling, Angioedema Patient Disposition: Home, Self-Care Condition: Improved Instructions: Antibiotic Form, Angioedema (ED) Additional Instructions: You will need to stop taking the lisinopril moving forward and you need to follow-up with your primary care physician within the next 3 days to be placed on a different blood pressure medication. Return to the emergency department if any new or worsening symptoms develop. Patient Language: Swedish Prescriptions: No Action atorvastatin 40 mg tablet 40 mg DIRECTED lisinopril 20 mg tablet sertraline 100 mg tablet 100 mg DIRECTED clopidogrel 75 mg tablet 75 mg DIRECTED metformin 1,000 mg tablet 1,000 mg DIRECTED metoprolol tartrate 50 mg tablet 50 mg DIRECTED folic acid 1 mg tablet 1 mg DIRECTED bupropion HCl 300 mg tablet extended release 24 hr 300 mg PO DIRECTED aripiprazole 2 mg tablet 2 mg DIRECTED Levemir FlexPen 100 unit/mL (3 mL) insulin pen 1 unit SUBCUT DIRECTED Januvia 100 mg tablet 100 mg DIRECTED (DME) pen needle, diabetic [BD Ann 2nd Gen Pen Needle] 32 gauge x 5/32 needle MISCELLANEOUS sodium,potassium,mag sulfates 17.5-3.13-1.6 gram recon soln 1 ml DIRECTED Follow-up/Referrals: PHYSICIAN NOT ON STAFF,NONSTAFF [Primary Care Provider] - Jorge Alberto Caldwell MD [Physician] - 3 Days Time of Disposition: 23:15
[2024-11-20 22:56] VITALS: BP 170/82; PULSE 56; RESP 13; O2SAT 98
== END 2024-11-20 23:43 | disposition home or self-care (01) ==
PROVIDERS: Emergency Provider Emergency Medicine
DX: K14.8 Other diseases of tongue (principal); T78.3XXA Angioneurotic edema, initial encounter; I25.10 Atherosclerotic heart disease of native coronary artery without angina pectoris
CPT/HCPCS: 96374; 96375; 99284; J1200; J2919